=== PATIENT | male | born 1985 | race Caucasian/White ===

== ENCOUNTER 2018-02-15 16:04 | Emergency (ER) | payer OTHER ==
[~2018-02-15] VITALS: Ht 177.8 cm; Wt 84.1 kg
[2018-02-15] MEDS ORDERED: ULTRAM50 M1 PO (17:01)
[2018-02-15] MEDS ORDERED: TORADOL PO (17:01)
[2018-02-15] MEDS ORDERED: FLEXERIL PO (17:01)
[2018-02-15 17:08] VITALS: BP 114/65
[2018-02-15] MEDS ORDERED: NO HOME MEDS (17:17)
== END 2018-02-15 17:17 | disposition home or self-care (01) | DRG 313 ==
LOC: ED 16:04
DX: R07.89 Other chest pain (principal); F17.220 Nicotine dependence, chewing tobacco, uncomplicated